=== PATIENT | female | born 1995 | race Caucasian/White ===

== ENCOUNTER 2019-06-27 08:03 | Emergency (ER) | payer OTHER ==
[~2019-06-27] VITALS: Ht 162.6 cm; Wt 102.1 kg
[~2019-06-27 08:03] MED LIST: ADDERALL XR 2020 MG PO; AMETHIA 0.15-01 EAC1 PO; CEFDINIR300 MG PO; CITRATE OF MAG296 ML PO; CLARITIN10 MG PO; COLACE100 MG PO; DARVOCET-N 1001 EAC1 PO; ESKALITH300 MG PO; HYDROCODON-ACE1 EAC7; HYDROXYZINE HCL50 MG PO; LORATIDINE 10 M10 M1 PO; METFORMIN HCL500 MG PO; NOHOMEMEDICATIONS; NORCO 5-325 TA1 EACH PO; OCUVITE TABLET1 EAC1 PO; ORTHO TRI-CYCL1 EACH PO; PHENERGAN 25 MG25 M1 PO; SENNA; TRAMADOL 50 MG50 MG PO; ZANTAC 150MG T150 M1 PO; ZOFRAN ODT4 M1 PO; ZOFRAN ODT4 MG; ZOFRAN ODT4 MG PO; ZPAK PO
[2019-06-27 08:40] LABS: URINE BILIRUBIN NEGATIVE (Negative); URINE BLOOD 2+ (Negative); URINE CLARITY CLEAR; URINE COLOR YELLOW; URINE GLUCOSE-RANDOM* NEGATIVE (Negative); URINE KETONES NEGATIVE (Negative); URINE LEUKOCYTES-REFLEX NEGATIVE (Negative); URINE NITRITE-REFLEX NEGATIVE (Negative); URINE PROTEIN (DIPSTICK) NEGATIVE (Negative); URINE SPECIFIC GRAVITY >= 1.030 (1.005-1.035); URINE UROBILINOGEN 0.2 E.U./dl (0.2-1.0)
[2019-06-27 08:41] LABS: ABSOLUTE NEUTROPHILS 14.5 thou/uL (1.4-8.2); BASOPHILS 0.3 % (0.0-2.0); EOSINOPHILS 1.3 % (0.0-3.0); HEMATOCRIT 43.3 % (37.0-47.0); HEMOGLOBIN 14.2 gm/dL (12.0-15.0); LYMPHOCYTES 4.1 % (24.0-44.0); MCH 28.9 pg (26.0-34.0); MCHC 32.8 g/dL (28.0-37.0); MCV 88.1 fL (80.0-100.0); MONOCYTES 3.1 % (1.0-8.0); PLATELET COUNT 404 thou/uL (150-400); POLYS 91.2 % (36.0-66.0); RBC 4.91 mil/uL (4.20-5.00); RDW 13.6 % (10.5-14.5); WBC 15.9 thou/uL (4.0-11.0)
[2019-06-27 08:55] LABS: CASTS None Seen /LPF (None Seen); SQUAMOUS 4-10 Moderate /LPF (0-3)
[2019-06-27 08:56] LABS: AMORPHOUS URATES Many /LPF (None Seen); BACTERIA-REFLEX 1-9 Few /HPF (None Seen)
[2019-06-27 09:03] LABS: CALCIUM 9.6 mg/dL (8.5-10.1); CREATININE 0.9 mg/dL (0.6-1.0); POTASSIUM 4.3 mmol/L (3.5-5.1)
[2019-06-27 09:08] LABS: ALBUMIN 4.5 g/dL (3.4-5.0); TOTAL BILIRUBIN 0.8 mg/dL (<0.1-1.0); TOTAL PROTEIN 9.2 g/dL (6.4-8.2)
[2019-06-27] MEDS ORDERED: BENTYL 20 MG TA20 M1 PO (10:06)
[2019-06-27] MEDS ORDERED: ULTRAM50 MG PO (10:06)
[2019-06-27] MEDS ORDERED: ZOFRAN ODT4 MG PO (10:06)
[2019-06-27 10:30] VITALS: BP 140/84
== END 2019-06-27 10:38 | disposition home or self-care (01) ==
LOC: ER 08:03
PROVIDERS: Emergency Medicine
DX: A08.4 Viral intestinal infection, unspecified (principal); R11.2 Nausea with vomiting, unspecified; Z88.5 Allergy status to narcotic agent; Z88.6 Allergy status to analgesic agent; Z79.899 Other long term (current) drug therapy

== ENCOUNTER 2019-06-30 17:16 | Emergency (ER) | payer OTHER ==
[~2019-06-30] VITALS: Ht 162.6 cm; Wt 102.1 kg
[~2019-06-30 17:16] MED LIST changes: +BENTYL 20 MG TA20 M1 PO; +ULTRAM50 MG PO
[2019-06-30 19:32] LABS: URINE BILIRUBIN NEGATIVE (Negative); URINE BLOOD TRACE (Negative); URINE CLARITY CLEAR; URINE COLOR YELLOW; URINE GLUCOSE-RANDOM* NEGATIVE (Negative); URINE KETONES NEGATIVE (Negative); URINE LEUKOCYTES-REFLEX NEGATIVE (Negative); URINE NITRITE-REFLEX NEGATIVE (Negative); URINE PROTEIN (DIPSTICK) NEGATIVE (Negative); URINE UROBILINOGEN 0.2 E.U./dl (0.2-1.0)
[2019-06-30 19:41] LABS: BASOPHILS 0.5 % (0.0-2.0); EOSINOPHILS 3.7 % (0.0-3.0); HEMATOCRIT 37.4 % (37.0-47.0); HEMOGLOBIN 12.3 gm/dL (12.0-15.0); MCV 87.7 fL (80.0-100.0); MONOCYTES 6.3 % (1.0-8.0); PLATELET COUNT 328 thou/uL (150-400); POLYS 61.5 % (36.0-66.0); RBC 4.26 mil/uL (4.20-5.00); RDW 13.7 % (10.5-14.5); WBC 9.7 thou/uL (4.0-11.0)
[2019-06-30 19:50] LABS: CALCIUM 9.3 mg/dL (8.5-10.1); CREATININE 0.7 mg/dL (0.6-1.0); POTASSIUM 4.2 mmol/L (3.5-5.1)
[2019-06-30 19:56] LABS: ALBUMIN 3.9 g/dL (3.4-5.0); TOTAL BILIRUBIN 0.3 mg/dL (<0.1-1.0); TOTAL PROTEIN 7.8 g/dL (6.4-8.2)
[2019-06-30] MEDS ORDERED: ZOFRAN ODT4 MG PO (21:01)
[2019-06-30] MEDS ORDERED: PEPCID20 MG PO (21:01)
[2019-06-30 22:33] VITALS: BP 119/67
== END 2019-06-30 22:37 | disposition home or self-care (01) ==
LOC: ER 17:16
PROVIDERS: Physician Assistant
DX: A08.4 Viral intestinal infection, unspecified (principal); R11.2 Nausea with vomiting, unspecified; R10.84 Generalized abdominal pain; F12.90 Cannabis use, unspecified, uncomplicated; Z88.6 Allergy status to analgesic agent; Z88.5 Allergy status to narcotic agent; Z79.899 Other long term (current) drug therapy; Z98.890 Other specified postprocedural states

== ENCOUNTER 2019-07-04 09:05 | Emergency (ER) | payer OTHER ==
[~2019-07-04] VITALS: Ht 170.2 cm; Wt 112.5 kg
[~2019-07-04 09:05] MED LIST changes: +PEPCID20 MG PO
[2019-07-04] MEDS ORDERED: BENTYL 20 MG TA20 M1 PO (10:42)
[2019-07-04] MEDS ORDERED: ULTRAM 50MG TAB50 MG PO (10:42)
[2019-07-04 10:52] VITALS: BP 102/47
[2019-07-04] MEDS ORDERED: ZOFRAN ODT4 MG PO (11:16)
== END 2019-07-04 11:25 | disposition home or self-care (01) ==
LOC: ER 09:05
DX: K52.9 Noninfective gastroenteritis and colitis, unspecified (principal); F90.9 Attention-deficit hyperactivity disorder, unspecified type; F41.9 Anxiety disorder, unspecified; Z90.49 Acquired absence of other specified parts of digestive tract; Z98.890 Other specified postprocedural states; Z88.6 Allergy status to analgesic agent; Z88.5 Allergy status to narcotic agent